=== PATIENT | male | born 1965 | race Two or more races ===

== ENCOUNTER → 2016-10-20 | Outpatient (CLI) | payer BC ==
--- NOTE | 2016-10-20 08:33 | RAD ---
EXAM: Left foot, 3 views. HISTORY: Pain. COMPARISON: None. FINDINGS: Frontal, lateral and oblique views of the left foot are obtained. There is no fracture, dislocation or subluxation. There is soft tissue swelling along the dorsal forefoot. There is lucency within the medial first metatarsal head, without a clear cortical defect to suggest erosion. There is also a tiny lucent lesion with peripheral sclerosis within the tuft of the third distal phalanx, likely of no clinical significance. There are tiny ossicles or soft tissue calcifications along the dorsal midfoot. IMPRESSION: No acute osseous finding.
== END | disposition home or self-care (01) ==
LOC: DXRADRC 07:41
PROVIDERS: ATTEND Physician Assistant Medical
DX: M79.672 Pain in left foot (principal)
CPT/HCPCS: 73630

== ENCOUNTER → 2018-11-03 | Outpatient (CLI) | payer BC ==
--- NOTE | 2018-11-03 10:14 | RAD ---
Chest, PA and Lateral: Technique: PA and lateral views of the chest were obtained. History: Congestion, sinusitis. Comparison: None. Findings: The heart and pulmonary vasculature appear within normal limits. The lungs are clear. The pleural margins are clear. Mild degenerative changes thoracic spine. Impression: No acute chest process is seen. Electronically signed by: Km Langley MD (11/03/2018 10:11 AM) [id number]
== END | disposition home or self-care (01) ==
LOC: RAD 09:57
PROVIDERS: ATTEND Physician Assistant Medical
DX: J32.9 Chronic sinusitis, unspecified (principal); M47.894 Other spondylosis, thoracic region
CPT/HCPCS: 71046